=== PATIENT | male | born 1955 | race Caucasian/White ===

== ENCOUNTER → 2016-09-28 | Outpatient (CLI) | payer OTHER | LOC: LAB 09:59 | DX: Z00.00 Encounter for general adult medical examination without abnormal findings (principal); Z12.5 Encounter for screening for malignant neoplasm of prostate ==

== ENCOUNTER → 2019-04-17 | Outpatient (CLI) | payer MEDICARE, OTHER ==
[~2019-04-17] VITALS: Ht 165.1 cm; Wt 87.7 kg
[2019-04-17 10:10] LABS: EOS # 0.1 (0.04-0.40); HEMATOCRIT 45.2 % (42.0-52.0); HEMOGLOBIN 15.3 g/dL (13.5-18.0); LYMPH# 1.5 (1.50-4.00); MEAN CELL VOLUME 88 fl (78-100); MEAN CORPUSCULAR HEMOGLOBIN 30 pg (27-31); MEAN CORPUSCULAR HGB CONC 34 g/dL (33-37); MEAN PLATELET VOLUME 9.1 fl (7.4-10.4); MONO # 0.4 (0.20-0.80); NEU # 4.2 (1.40-6.50); PLATELET COUNT 224 K/mm3 (130-400); RED BLOOD COUNT 5.13 M/mm3 (4.20-5.60); RED CELL DISTRIBUTION WIDTH 13.7 % (11.5-14.5); WHITE BLOOD COUNT 6.4 K/mm3 (4.8-10.8)
[2019-04-17 10:19] LABS: ALBUMIN 4.1 g/dL (3.4-4.8); POTASSIUM 4.2 mmol/L (3.5-5.1)
[2019-04-17 10:22] LABS: TOTAL PROTEIN 7.1 g/dL (6.2-8.1)
[2019-04-17 10:23] LABS: TOTAL BILIRUBIN 0.5 mg/dL (0.2-1.2)
[2019-04-17 10:47] VITALS: BP 136/82
== END ==
LOC: AMSURD 09:54
PROVIDERS: Internal Medicine
DX: Z00.00 Encounter for general adult medical examination without abnormal findings (principal); Z12.5 Encounter for screening for malignant neoplasm of prostate; Z12.11 Encounter for screening for malignant neoplasm of colon

== ENCOUNTER → 2022-10-25 | Outpatient (CLI) | payer MEDICARE ==
[~2022-10-25] MED LIST: PROAIR HFA0.09 MG/AC IH
== END ==
LOC: RAD 14:34
DX: J44.9 Chronic obstructive pulmonary disease, unspecified (principal)

== ENCOUNTER → 2023-06-20 | Outpatient (CLI) | payer MEDICARE | LOC: RAD 10:31 | DX: M79.672 Pain in left foot (principal) ==

== ENCOUNTER → 2023-10-21 | Outpatient (CLI) | payer MEDICARE, OTHER | LOC: RAD 08:07 | DX: M17.12 Unilateral primary osteoarthritis, left knee (principal) ==